=== PATIENT | female | born 1975 | race Caucasian/White ===

== ENCOUNTER → 2016-07-09 | Outpatient (CLI) | payer OTHER ==
--- NOTE | 2016-07-09 16:29 | MA ---
Screening Digital Mammogram Clinical Indications: Routine screening. Technique: Standard cephalocaudal and mediolateral oblique projections are obtained. This examinati on is processed by the [employer] computer aided detection system. Comparison: None Breast density: B; There are scattered fibroglandular densities. Findings: CAD was reviewed. Small nodule upper left breast, possibly with ill-defined margins. Possib le asymmetry with architectural distortion outer right breast. Impression: Possible bilateral abnormalities.. BI-RADS 0: Needs additional imaging evaluation, I lateral. Recommendation: 1. Left breast: Spot compression magnification view over the upper left breast. If t he nodule persists, and if there are no findings of a benign intramammary lymph node, then proceed to further characterization and localization with ultrasound. 2. Right breast: Spot compression view over the far outer right breast. If architectural distortion/a symmetry persists, then attempt to localize in the orthagonal plane mammographically, and then procee d to ultrasound, for further characterization and localization purposes. Please fax a written or electronic order for a bilateral diagnostic mammogram and ultrasound to . [facility] will send a result letter to the patient. Negative mammography should not preclude additional workup of a clinically suspicious finding. The patient's information is entered into a reminder system with a target due date for her next mammo gram.
== END ==
LOC: BRMIMAGING 13:18
DX: Z12.31 Encounter for screening mammogram for malignant neoplasm of breast (principal)
CPT/HCPCS: G0202

== ENCOUNTER → 2016-07-30 | Outpatient (CLI) | payer OTHER ==
--- NOTE | 2016-07-30 10:20 | MA ---
Bilateral Diagnostic Digital Mammogram with iCAD Clinical Indications: Asymmetric density on recent screening mammogram. Technique: Digital spot compression right exaggerated CC, right spot CC, right true lateral, left sp ot mediolateral oblique and true lateral views. This examination was processed by the [facility] computer-a ided detection system. Comparison: Recent mammogram. Baseline mammogram July 09, 2016. Breast Density: C, 50-75%. Findings: Previous asymmetric density identified is no longer detected on the additional views or steven e lateral views. This is consistent with normal overlapping breast parenchyma. No suspicious findings on bilateral mammograms. Impression: ACR BI-RADS 2: Benign bilateral mammogram. Recommendation: Annual mammograms with next screening mammograms in July 2017. [facility] will send a result letter to the patient. Negative mammography should not preclude additional workup of a clinically suspicious finding. Findings and recommendations have been discussed with the patient who agrees with the plan. The patient's information is entered into a reminder system with a target due date for her next mammo gram.
== END ==
LOC: BRMIMAGING 09:40
DX: R92.8 Other abnormal and inconclusive findings on diagnostic imaging of breast (principal)
CPT/HCPCS: G0204

== ENCOUNTER → 2017-07-10 | Outpatient (CLI) | payer OTHER | LOC: BRMIMAGING 13:55 | PROVIDERS: ATTEND Obstetrics & Gynecology | DX: Z12.31 Encounter for screening mammogram for malignant neoplasm of breast (principal) ==